=== PATIENT | male | born 1975 | race American Indian/Alaskan Native ===

== ENCOUNTER 2018-04-23 11:35 | Emergency (ER) | payer OTHER ==
[2018-04-23 12:14] LABS: Bilirubin,Urine NEG (Negative); Blood,Urine NEG (Negative); Color,Urine Yellow (Yellow); Mucus,Urine 2+ /HPF; Protein,Urine <15 mg/dL mg/dL (Negative)
[2018-04-23] MEDS ORDERED: ZOFRAN IV ONE (12:20)
[2018-04-23] MEDS ORDERED: ALUM-MAG HYDROX-SIMETH 200-200-20MG/5ML PO ONE (12:38)
[2018-04-23] MEDS ORDERED: LIDOCAINE VISCOUS 2% PO ONE (12:38)
[2018-04-23] MEDS ORDERED: PEPCID IV ONE (12:38)
[2018-04-23] MEDS ORDERED: MYLICON PO ONE (13:00)
[2018-04-23 13:17] LABS: Alanine Aminotransferase 6 units/L (7-56); Albumin 3.5 g/dL (3.9-5); BUN/Creatinine Ratio 14; Blood Urea Nitrogen 11 mg/dL (9-20); Calcium 8.4 mg/dL (8.4-10.2); Hemolysis Index 1
--- NOTE | 2018-04-23 13:20 | Emergency Department Report ---
ED Abdominal Pain HPI - General Chief Complaint: Chest Pain Stated Complaint: CHEST PAIN/ABD EXTREME PAIN Time Seen by Provider: 04/23/18 12:12 Source: patient Mode of arrival: Ambulatory Limitations: No Limitations - History of Present Illness Initial Comments: 42 yo AA male comes to ER with what he describes first as epigastric pain. The pain then moved to the lower abdomen and was associated with flatus. Pt endorses nausea. no vomiting. he had a normal BM today. He was in position on admit. Pt is thin and ill appearing. He did not offer that he has HIV until I asked. He is off antiviral meds; has been for 1 year. No routine meds He follows with [facility] He states he has low B12 MD Complaint: abdominal pain -: Sudden Location: diffuse Severity: moderate Quality: cramping Consistency: intermittent Improves With: nothing Worsens With: nothing Associated Symptoms: nausea. denies: vomiting, diarrhea, fever, chills, constipation, dysuria, hematemesis, hematochezia, melena, hematuria, anorexia, syncope - Related Data Previous Rx's Medication Instructions Recorded Last Taken Type Dicyclomine [Bentyl] 20 mg PO Q8H PRN #10 tablet 04/23/18 Unknown Rx Ondansetron [Zofran Odt] 4 mg PO Q8HR PRN #12 tab.rapdis 04/23/18 Unknown Rx Allergies Allergy/AdvReac Type Severity Reaction Status Date / Time No Known Allergies Allergy Unverified 04/23/18 11:44 ED Review of Systems ROS: Stated complaint: CHEST PAIN/ABD EXTREME PAIN Other details as noted in HPI Comment: All other systems reviewed and negative Constitutional: denies: chills, fever Eyes: denies: eye pain ENT: denies: ear pain Respiratory: denies: cough Cardiovascular: denies: palpitations Endocrine: denies: excessive sweating Gastrointestinal: as per HPI, abdominal pain, nausea. denies: vomiting, diarrhea, constipation, hematemesis, melena, hematochezia Genitourinary: denies: urgency, dysuria, frequency, hematuria, discharge, testicular pain, testicular mass Musculoskeletal: denies: back pain Skin: denies: rash Neurological: denies: headache Psychiatric: denies: anxiety Hematological/Lymphatic: denies: easy bleeding ED Past Medical Hx - Past Medical History Previous Medical History?: Yes Additional medical history: HIV- - Surgical History Past Surgical History?: No - Family History Family history: no significant - Social History Smoking Status: Never Smoker Substance Use Type: None - Medications Home Medications: Home Medications Medication Instructions Recorded Confirmed Last Taken Type Dicyclomine [Bentyl] 20 mg PO Q8H PRN #10 tablet 04/23/18 Unknown Rx Ondansetron [Zofran Odt] 4 mg PO Q8HR PRN #12 tab.rapdis 04/23/18 Unknown Rx ED Physical Exam - General Limitations: No Limitations General appearance: alert - Head Head exam: Present: atraumatic - Eye Eye exam: Present: normal appearance, PERRL Pupils: Present: normal accommodation - ENT ENT exam: Present: normal exam - Neck Neck exam: Present: normal inspection, full ROM - Respiratory Respiratory exam: Present: normal lung sounds bilaterally - Cardiovascular Cardiovascular Exam: Present: regular rate - GI/Abdominal GI/Abdominal exam: Present: soft, normal bowel sounds. Absent: distended, tenderness, guarding, rebound, rigid, diminished bowel sounds, hyperactive bowel sounds, hypoactive bowel sounds - Rectal Rectal exam: Present: deferred - Extremities Exam Extremities exam: Present: normal inspection, full ROM - Back Exam Back exam: Present: normal inspection, full ROM - Neurological Exam Neurological exam: Present: alert, oriented X3, CN II-XII intact - Psychiatric Psychiatric exam: Present: normal affect, normal mood - Skin Skin exam: Present: warm, dry, intact ED Course Vital Signs 04/23/18 04/23/18 11:44 16:18 Temperature 98.4 F Pulse Rate 98 H 86 Respiratory 16 18 Rate Blood Pressure 119/88 Blood Pressure 109/79 [Right] O2 Sat by Pulse 100 100 Oximetry ED Medical Decision Making - Lab Data Result diagrams: 04/23/18 12:34 04/23/18 12:53 - Medical Decision Making LABS NOTED NO FEVER WBC NORMAL AFTER NS PT WAS AMBULATORY AND SMILING. HE STATES HE FEELS BETTER. PT LIVES ALONE AND HIS MEALS ARE CHIPS AND SODA. HE WORKS IN [employer]. HAS A SISTER NEAR BY THAT IS ON THC FOR PAIN LONG DISCUSSION WITH PT ABOUT HIS HIV AND HIS NUTRITIONAL HEALTH. HE WILL BE DC HOME VSS NO FEVER NO PAIN HE WILL FOLLOW UP WITH HIS PCP GI REFERRAL PROVIDED WELL Labs 04/23/18 04/23/18 04/23/18 11:58 12:34 12:53 WBC 6.9 RBC 4.36 Hgb 12.2 Hct 36.2 MCV 83 L MCH 28 MCHC 34 RDW 12.2 L Plt Count 417 Sodium 137 Potassium 3.7 Chloride 101.1 Carbon Dioxide 25 Anion Gap 15 BUN 11 Creatinine 0.8 Estimated GFR > 60 BUN/Creatinine Ratio 14 Glucose 92 Calcium 8.4 Total Bilirubin 0.40 AST 23 ALT 6 L Alkaline Phosphatase 83 Total Protein 8.1 Albumin 3.5 L Albumin/Globulin Ratio 0.8 Urine Color Yellow Urine Turbidity Clear Urine pH 7.0 Ur Specific [place] 1.021 Urine Protein <15 mg/dl Urine Glucose (UA) Neg Urine Ketones Neg Urine Blood Neg Urine Nitrite Neg Urine Bilirubin Neg Urine Urobilinogen 4.0 Ur Leukocyte Esterase Neg Urine WBC (Auto) 2.0 Urine RBC (Auto) 9.0 Urine Mucus 2+ - Differential Diagnosis RO ACUTE ABDOMINAL PROCESS Critical care attestation.: If time is entered above; I have spent that time in minutes in the direct care of this critically ill patient, excluding procedure time. ED Disposition Clinical Impression: Abdominal pain, HIV (human immunodeficiency virus infection) Disposition: TO HOME OR SELFCARE Is pt being admited?: No Does the pt Need Aspirin: No Condition: Stable Instructions: Abdominal Pain (ED) Additional Instructions: LABS ALL NORMAL TODAY HYDRATE WELL WITH WATER 2 GALLONS A DAY EAT BETTER A DAILY MULTIVITAMIN WILL BE HELPFUL FOR YOU MOTRIN OR TYLENOL FOR PAIN IF YOU TAKE MOTRIN- TAKE WITH [facility]ACKERS AVOID FOODS THAT IRRITATE YOUR STOMACH FOLLOW UP WEDNESDAY WITH PCP AND MAKE SURE YOU ARE BETTER I'VE ALSO GIVEN YOU A REFERRAL TO GI SEE BELOW Prescriptions: Dicyclomine [Bentyl] 20 mg PO Q8H PRN #10 tablet PRN Reason: Pain , Severe (7-10) Ondansetron [Zofran Odt] 4 mg PO Q8HR PRN #12 tab.rapdis PRN Reason: Nausea Referrals: AFSANEH UP MD [Primary Care Provider] - 3-5 Days MARK PERALES MD [Staff Physician] - 3-5 Days BETTINA MAN MD [Staff Physician] - 3-5 Days NAOMI HAGAN MD [Staff Physician] - 3-5 Days Time of Disposition: 15:39
[2018-04-23 13:55] LABS: Hematocrit 36.2 % (35.5-45.6); Hemoglobin 12.2 gm/dl (11.8-15.2); Mean Corpuscular HGB Conc 34 % (32-34); Mean Corpuscular Volume 83 fl (84-94); Platelet Count 417 K/mm3 (140-440); Red Blood Count 4.36 M/mm3 (3.65-5.03); Red Cell Distribution Width 12.2 % (13.2-15.2)
[2018-04-23] MEDS ORDERED: NACL 0.9% 1000 ML 1,000 ML IV ONE (14:03)
[2018-04-23 15:41] LABS: Total Cells Counted 100
[2018-04-23 15:42] LABS: Band Neutrophils # (Manual) 0.1 K/mm3; Basophils % (Manual) 0 % (0.0-1.8); Eosinophils % (Manual) 0 % (0.0-4.3); Platelet Estimate Consistent w Auto; RBC Morphology Normal
[2018-04-23 16:19] VITALS: BP 109/79
== END 2018-04-23 16:19 | disposition home or self-care (01) ==
LOC: ED 11:35
DX: R10.84 Generalized abdominal pain (principal); R11.0 Nausea
CPT/HCPCS: 36415; 80053; 81001; 85007; 85025; 93005; 93010; 96374; 96375; 99283; J2405; J7030